=== PATIENT | female | born 1930 | race Caucasian/White ===

== ENCOUNTER → 2016-10-30 | Outpatient (REF) | payer MEDICARE, MEDICAID ==
[~2016-10-30] MED LIST: *BLDWK1; *BLDWK10; *BLDWK2; *CXR; *MAMMOGRAM; *NEBULIZER; /ADVA50050 INH; /GUAIMAX PO; /MELO7TA PO; /WARF25TA; /WARF25TA PO; ACCOLATE; ACET500C; ACET500C PO; ACET500T37 PO; ADV500INH INH; ADVAIR200 INHALATION; ADVAIR500 INHALATION; ALBU/IPRAT INHALATION; ALBU20IN INH; ALBUTERAL INHALER; ALBUTERAL SULFATE NEB; ALBUTEROL INHALATION; ALLE10TA11 PO; ALLOPUR100 PO; AMOXIL500 PO; ANTI25TA; ANTIV 25 PO; ASPI81TA85 PO; ASTE137S; ASTELIN; ASTELIN NASAL; ATARAX25 PO; ATROVENTIN; ATROVENTIN PO; AUG875 PO; AVELOX PO; BABY81CH; BACTRIMDS; BACTRIMDS PO; BENA25CA2 PO; CALCIUM CITRATE PO; CALCTAB37 PO; CEFTIN500 PO; CIPRO500 PO; CITRTAB14 PO; CITRTAB15 PO; CLAR1TAB2 PO; CLAR5CHW; CLARITIN10; CLARITIN10 PO; COLA100C PO; COLA50CA3 PO; DARV100T; DEXA; DICL13PA TD; DOXY75CA3 PO; DOXYCYC100; DOXYCYC100 PO; DRISDOL50 PO; DUONSOL INH; DURATUSS PO; FISH1000 PO; FISHCAP; FLAX SEED; FLAX1000 PO; FLECTOR PATCH TD; FOSAMAX70; FURO40TA2 PO; GLUC250C5 PO; GLUCTAB6; HYDR12.56 PO; HYDR200T3 PO; HYDROXYCHLOROQUINE; HYDROXYCHLOROQUINE PO; IPRA2IN INH; IPRASOL4 NEB; IPRATROPIUM BROMIDE; LEVO50TA2 PO; LEVOTH PO; LORA10TA2 PO; LORATADINE PO; LOVE1INJ2 SC; MAALSUS16 PO; MAMMOGRAM; MECL-68 PO; MECLIZIN PO; MELO7.5S PO; MELO7.5T3 PO; METO10TA2; MOME50SP; MOMETASONE; MUCINEX; MULTCAP PO; MULTLIQ7 PO; NASONEX; NASONEX NASAL; ONDA4TAB6 PO; PARO20TA2 PO; PERC5TAB6 PO; PERC5TAB8; PERI0.126 MT; PLAQ200T PO; POLYOPD OU; PRED10TA PO; PRED20TA; PRIL20CA; PRIL20CA PO; PRIL20CA9 PO; PROAAER INH; PROV2.5T PO; PROVENTILI; PROVENTILI PO; PULMICORT; REGL10TA6 PO; REST0.05 OU; RESTASIS OU; RHINOAEROS NASAL; SENO8.6T2 PO; SEREVENTIN DISCUS; SEREVENTIN PO; SING10TA31; SINGULAI10 PO; SKEL800T5; STOOL SOFTNER; SYNT50TA PO; TEMOVATECR TOPICAL; TIGAN PO; TRAZ50TA4 PO; TUSSIONEX PO; TUSSSUS5; TYL325; TYLE325T5 PO; Tramadol PO; ULTR50TA PO; VENTAER INH; VITA100T20 PO; VITA400C2 PO; VITAMIN D; VITAMIN D PO; VITMTA PO; Vitamin B12 PO; XOPENEX; ZOFR4SOL PO; ZYRTEC10; ZYRTEC10 PO; [UNRECOGNIZED DRUG - CODE] PO; [UNRECOGNIZED DRUG - CODE] PO; [UNRECOGNIZED DRUG - OTHER]; [UNRECOGNIZED DRUG - OTHER]; [UNRECOGNIZED DRUG - OTHER] AU; [UNRECOGNIZED DRUG - OTHER] PO; [UNRECOGNIZED DRUG - OTHER] TOPICAL; [UNRECOGNIZED DRUG - OTHER] TOPICAL; [UNRECOGNIZED DRUG - REMARK] PO; citracal; mobic; vitamin; vitamin b 12; vitamin e
== END ==
PROVIDERS: ATTEND Internal Medicine
DX: E03.9 Hypothyroidism, unspecified (principal)

== ENCOUNTER → 2016-11-06 | Outpatient (REF) | payer MEDICARE, MEDICAID ==
[2016-11-06 12:26] LABS: CREATININE FOR GFR 1.45 MG/DL (0.55-1.02); GLOMERULAR FILTRATION RATE 36.5 (>32); POTASSIUM SERUM 3.8 MEQ/L (3.5-5.1)
== END ==
PROVIDERS: ATTEND Internal Medicine
DX: E87.6 Hypokalemia (principal)

== ENCOUNTER → 2017-01-24 | Outpatient (REF) | payer MEDICARE, MEDICAID ==
[~2017-01-24] MED LIST changes: -COLA100C PO; +COLA100C3 PO
--- NOTE | 2017-01-25 08:41 | REP ---
Clinical: Left hip pain. Technique: Neutral and frog lateral views of the left hip. Findings: Joint space narrowing is appreciated along with osteophyte/spurring along the acetabular rim. Small periarticular calcifications cannot be excluded along with adjacent vascular calcifications. No acute fracture dislocation. 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 No acute fracture or dislocation. Signed by Cristian Sanchez MD 01/24/2017 01:06 P
--- NOTE | 2017-01-25 08:41 | REP ---
Clinical: Left hip pain. Technique: Single AP view of the pelvis. Findings: Prior right hip arthroplasty. Mild joint space narrowing is appreciated. Femoral head is normal in contour. No acute fracture dislocation. Impression: Mild joint space narrowing and minimal age-related changes. Signed by Cristian Sanchez MD 01/24/2017 01:02 P
== END ==
PROVIDERS: ATTEND Internal Medicine
DX: M16.12 Unilateral primary osteoarthritis, left hip (principal); Z96.642 Presence of left artificial hip joint

== ENCOUNTER → 2017-01-24 | Outpatient (CLI) | payer MEDICARE, MEDICAID | LOC: M RAD 12:43 | PROVIDERS: ATTEND Internal Medicine | DX: Z53.8 Procedure and treatment not carried out for other reasons (principal) ==

== ENCOUNTER → 2017-02-12 | Outpatient (REF) | payer MEDICARE, MEDICAID ==
[2017-02-12 11:28] LABS: MEAN CORPUSCULAR HGB CONC 32.3 g/dl (32.0-36.5); MEAN CORPUSCULAR VOLUME 96.1 fl (80.0-96.0)
[2017-02-12 12:04] LABS: ALBUMIN 3.2 GM/DL (3.2-5.2); ALBUMIN/GLOBULIN RATIO 1.14 (1.00-1.93); BILIRUBIN,TOTAL 0.4 MG/DL (0.2-1.0); CALCIUM LEVEL 9.1 MG/DL (8.8-10.2); CREATININE FOR GFR 1.46 MG/DL (0.55-1.02); GLOMERULAR FILTRATION RATE 36.2 (>32); POTASSIUM SERUM 4.2 MEQ/L (3.5-5.1)
== END ==
PROVIDERS: ATTEND Internal Medicine
DX: N18.9 Chronic kidney disease, unspecified (principal)

== ENCOUNTER → 2017-04-30 | Outpatient (REF) | payer MEDICARE, MEDICAID ==
[~2017-04-30] MED LIST changes: +ACET-683 PO; -ACET500T37 PO; -CALCTAB37 PO; +CALCTAB63 PO; -COLA100C3 PO; +COLA100C5 PO; +PERC5TAB12 PO; -PERC5TAB6 PO; -SENO8.6T2 PO; +SENO8.6T5 PO; +TRAZ50TA11 PO; -TRAZ50TA4 PO
[2017-04-30 11:21] LABS: MEAN CORPUSCULAR HEMOGLOBIN 30.7 pg (27.0-33.0); MEAN CORPUSCULAR VOLUME 95.8 fl (80.0-96.0); RED CELL DISTRIBUTION WIDTH 13.8 % (11.5-14.5); WHITE BLOOD COUNT 5.3 K/mm3 (4.0-10.0)
[2017-04-30 11:47] LABS: CALCIUM LEVEL 8.6 MG/DL (8.8-10.2); CREATININE FOR GFR 1.35 MG/DL (0.55-1.02); GLOMERULAR FILTRATION RATE 39.7 (>32); POTASSIUM SERUM 3.8 MEQ/L (3.5-5.1)
== END ==
PROVIDERS: ATTEND Internal Medicine
DX: I50.9 Heart failure, unspecified (principal); J44.9 Chronic obstructive pulmonary disease, unspecified

== ENCOUNTER → 2017-08-06 | Outpatient (REF) | payer MEDICARE, MEDICAID ==
[2017-08-06 12:29] LABS: BASO # 0.1 10^3/uL (0.0-0.2); BASO % 0.4 % (0.0-1.0); EOS % 0.1 % (0.0-3.0); IMMATURE GRANULOCYTE % 0.6 % (0-0); LYMPH # 1.4 10^3/uL (1.5-4.5); LYMPH % 8.9 % (24.0-44.0); MEAN CORPUSCULAR HEMOGLOBIN 29.5 pg (27.0-33.0); MEAN CORPUSCULAR VOLUME 89.4 fl (80.0-96.0); MONO # 1.2 10^3/uL (0.0-0.8); MONO % 7.4 % (0.0-5.0); NEUTROPHILS # 13.2 10^3/uL (1.8-7.7); NEUTROPHILS % 82.6 % (36.0-66.0); PLATELET COUNT, AUTOMATED 174 10^3/uL (150-450); RED CELL DISTRIBUTION WIDTH 15.2 % (11.5-14.5)
--- NOTE | 2017-08-06 12:34 | REP ---
Clinical: Cough. Technique: AP view of the chest. Comparison: 12/27/2015. Findings: Mediastinum and cardiac silhouette are stable. Diffuse chronic interstitial changes are appreciated. Superimposed left lower lobe atelectasis cannot be excluded. No obvious effusion. No pneumothorax. Skeletal structures intact. Impression: Cannot exclude trace left basilar atelectasis. Signed by Cristian Sanchez MD 08/06/2017 12:25 P
[2017-08-06 12:52] LABS: ALBUMIN/GLOBULIN RATIO 0.91 (1.00-1.93); BILIRUBIN,TOTAL 0.7 MG/DL (0.2-1.0); CALCIUM LEVEL 9.1 MG/DL (8.8-10.2); CREATININE FOR GFR 1.53 MG/DL (0.55-1.02); GLOMERULAR FILTRATION RATE 34.3 (>32); POTASSIUM SERUM 3.7 MEQ/L (3.5-5.1); TOTAL PROTEIN 6.3 GM/DL (6.4-8.2)
== END ==
PROVIDERS: ATTEND Internal Medicine
DX: R05 Cough (principal); R09.81 Nasal congestion

== ENCOUNTER → 2017-08-11 | Outpatient (REF) | payer MEDICARE, MEDICAID ==
[2017-08-11 09:42] LABS: BASO % 0.1 % (0.0-1.0); IMMATURE GRANULOCYTE % 0.4 % (0-0); LYMPH # 0.8 10^3/uL (1.5-4.5); MEAN CORPUSCULAR HEMOGLOBIN 29.2 pg (27.0-33.0); MEAN CORPUSCULAR HGB CONC 32.4 g/dl (32.0-36.5); MEAN CORPUSCULAR VOLUME 90.2 fl (80.0-96.0); MONO # 0.4 10^3/uL (0.0-0.8); MONO % 5.4 % (0.0-5.0); NEUTROPHILS # 5.7 10^3/uL (1.8-7.7); NEUTROPHILS % 83.1 % (36.0-66.0); PLATELET COUNT, AUTOMATED 233 10^3/uL (150-450); RED CELL DISTRIBUTION WIDTH 14.4 % (11.5-14.5); WHITE BLOOD COUNT 6.9 10^3/uL (4.0-10.0)
== END ==
PROVIDERS: ATTEND Internal Medicine
DX: R50.9 Fever, unspecified (principal)

== ENCOUNTER → 2017-08-16 | Outpatient (REF) | payer MEDICARE, MEDICAID ==
[2017-08-16 10:56] LABS: MEAN CORPUSCULAR HEMOGLOBIN 29.6 pg (27.0-33.0); MEAN CORPUSCULAR HGB CONC 32.1 g/dl (32.0-36.5); MEAN CORPUSCULAR VOLUME 92.3 fl (80.0-96.0); PLATELET COUNT, AUTOMATED 222 10^3/uL (150-450); RED CELL DISTRIBUTION WIDTH 14.8 % (11.5-14.5); WHITE BLOOD COUNT 10.1 10^3/uL (4.0-10.0)
[2017-08-16 11:22] LABS: ALBUMIN 3.3 GM/DL (3.2-5.2); ALBUMIN/GLOBULIN RATIO 1.03 (1.00-1.93); BILIRUBIN,TOTAL 0.3 MG/DL (0.2-1.0); CALCIUM LEVEL 8.6 MG/DL (8.8-10.2); CREATININE FOR GFR 1.63 MG/DL (0.55-1.02); GLOMERULAR FILTRATION RATE 31.8 (>32); POTASSIUM SERUM 3.6 MEQ/L (3.5-5.1); TOTAL PROTEIN 6.5 GM/DL (6.4-8.2)
== END ==
PROVIDERS: ATTEND Internal Medicine
DX: R63.4 Abnormal weight loss (principal); R53.83 Other fatigue

== ENCOUNTER → 2017-09-04 | Outpatient (REF) | payer MEDICARE, MEDICAID ==
[2017-09-04 10:34] LABS: MEAN CORPUSCULAR HEMOGLOBIN 29.7 pg (27.0-33.0); MEAN CORPUSCULAR HGB CONC 32.6 g/dl (32.0-36.5); MEAN CORPUSCULAR VOLUME 90.9 fl (80.0-96.0); PLATELET COUNT, AUTOMATED 180 10^3/uL (150-450); RED CELL DISTRIBUTION WIDTH 14.9 % (11.5-14.5)
[2017-09-04 11:17] LABS: ALBUMIN 2.9 GM/DL (3.2-5.2); ALBUMIN/GLOBULIN RATIO 0.94 (1.00-1.93); ALKALINE PHOSPHATASE 115 U/L (45-117); ALT/SGPT 25 U/L (12-78); ANION GAP 5 MEQ/L (8-16); AST/SGOT 38 U/L (7-37); BILIRUBIN,TOTAL 0.4 MG/DL (0.2-1.0); BLOOD UREA NITROGEN 26 MG/DL (7-18); CALCIUM LEVEL 8.9 MG/DL (8.8-10.2); CARBON DIOXIDE LEVEL 34 MEQ/L (21-32); CHLORIDE LEVEL 102 MEQ/L (98-107); CREATININE FOR GFR 1.55 MG/DL (0.55-1.02); GLOMERULAR FILTRATION RATE 33.7 (>32); GLUCOSE, FASTING 72 MG/DL (83-110); POTASSIUM SERUM 3.8 MEQ/L (3.5-5.1); SODIUM LEVEL 141 MEQ/L (136-145)
== END ==
DX: E03.9 Hypothyroidism, unspecified (principal)
CPT/HCPCS: 80053

== ENCOUNTER → 2017-09-12 | Outpatient (REF) | payer MEDICARE, MEDICAID ==
[2017-09-12 17:40] LABS: ANION GAP 8 MEQ/L (8-16); BLOOD UREA NITROGEN 28 MG/DL (7-18); CARBON DIOXIDE LEVEL 28 MEQ/L (21-32); CHLORIDE LEVEL 107 MEQ/L (98-107); CREATININE FOR GFR 1.61 MG/DL (0.55-1.02); GLOMERULAR FILTRATION RATE 32.3 (>32); GLUCOSE, FASTING 128 MG/DL (83-110); POTASSIUM SERUM 4.5 MEQ/L (3.5-5.1); SODIUM LEVEL 143 MEQ/L (136-145)
[2017-09-12 18:37] LABS: HEMATOCRIT 40.6 % (36.0-47.0); MEAN CORPUSCULAR HEMOGLOBIN 28.8 pg (27.0-33.0); PLATELET COUNT, AUTOMATED 269 10^3/uL (150-450); RED BLOOD COUNT 4.51 10^6/uL (4.00-5.40); WHITE BLOOD COUNT 5.8 10^3/uL (4.0-10.0)
== END ==
DX: R53.83 Other fatigue (principal); R05 Cough
CPT/HCPCS: 80048

== ENCOUNTER → 2017-09-19 | Outpatient (REF) | payer MEDICARE, MEDICAID ==
[2017-09-19 12:35] LABS: BASO # 0.1 10^3/uL (0.0-0.2); BASO % 0.8 % (0.0-1.0); HEMATOCRIT 41.1 % (36.0-47.0); HEMOGLOBIN 13.3 g/dl (12.0-16.0); IMMATURE GRANULOCYTE # 0.1 10^3/uL (0-0); IMMATURE GRANULOCYTE % 1.6 % (0-0); LYMPH # 1.1 10^3/uL (1.5-4.5); LYMPH % 14.4 % (24.0-44.0); MEAN CORPUSCULAR HEMOGLOBIN 29.4 pg (27.0-33.0); MEAN CORPUSCULAR HGB CONC 32.4 g/dl (32.0-36.5); MEAN CORPUSCULAR VOLUME 90.9 fl (80.0-96.0); MONO # 0.9 10^3/uL (0.0-0.8); MONO % 11.2 % (0.0-5.0); NEUTROPHILS # 5.5 10^3/uL (1.8-7.7); PLATELET COUNT, AUTOMATED 286 10^3/uL (150-450); RED BLOOD COUNT 4.52 10^6/uL (4.00-5.40); RED CELL DISTRIBUTION WIDTH 15.1 % (11.5-14.5); WHITE BLOOD COUNT 7.6 10^3/uL (4.0-10.0)
[2017-09-19 12:43] LABS: APPEARANCE, URINE HAZY (CLEAR); BACTERIA, URINE AUTO NEGATIVE (NEGATIVE); BILIRUBIN, URINE AUTO NEGATIVE (NEGATIVE); BLOOD, URINE BLOOD NEGATIVE (NEGATIVE); COLOR, URINE YELLOW (YELLOW); GLUCOSE, URINE (UA) AUTO NEGATIVE (NEGATIVE); KETONE, URINE AUTO NEGATIVE (NEGATIVE); LEUKOCYTE ESTERASE, URINE AUTO TRACE (NEGATIVE); MUCUS, URINE SMALL (NEGATIVE); NITRITE, URINE AUTO NEGATIVE (NEGATIVE); PROTEIN, URINE AUTO NEGATIVE (NEGATIVE); RBC, URINE AUTO 2 /HPF (0-3); SPECIFIC GRAVITY URINE AUTO 1.013 (1.002-1.035); SQUAMOUS EPITHELIAL CELL UR AU 0 /HPF (0-6); UROBILINOGEN, URINE AUTO 0.2 mg/dL (0.0-2.0); WBC, URINE AUTO 9 /HPF (0-3)
[2017-09-19 13:05] LABS: ERYTHROCYTE SEDIMENTATION RATE 56 mm/hr (0-42)
[2017-09-19 14:23] LABS: ALBUMIN 2.8 GM/DL (3.2-5.2); ALBUMIN/GLOBULIN RATIO 0.82 (1.00-1.93); ALKALINE PHOSPHATASE 99 U/L (45-117); ALT/SGPT 25 U/L (12-78); ANION GAP 11 MEQ/L (8-16); AST/SGOT 41 U/L (7-37); BILIRUBIN,TOTAL 0.4 MG/DL (0.2-1.0); BLOOD UREA NITROGEN 26 MG/DL (7-18); C REACTIVE PROTEIN QUANTITATIV 3.82 MG/DL (0.00-0.30); CALCIUM LEVEL 9.1 MG/DL (8.8-10.2); CARBON DIOXIDE LEVEL 29 MEQ/L (21-32); CHLORIDE LEVEL 100 MEQ/L (98-107); CREATININE FOR GFR 1.44 MG/DL (0.55-1.02); GLOMERULAR FILTRATION RATE 36.7 (>32); GLUCOSE, FASTING 81 MG/DL (83-110); POTASSIUM SERUM 3.2 MEQ/L (3.5-5.1); SODIUM LEVEL 140 MEQ/L (136-145); TOTAL PROTEIN 6.2 GM/DL (6.4-8.2)
== END ==
DX: R63.4 Abnormal weight loss (principal); E03.9 Hypothyroidism, unspecified; J44.9 Chronic obstructive pulmonary disease, unspecified; I50.9 Heart failure, unspecified; Z79.899 Other long term (current) drug therapy
CPT/HCPCS: 84443

== ENCOUNTER → 2017-09-20 | Outpatient (REF) | payer MEDICARE, MEDICAID | DX: E87.5 Hyperkalemia (principal) | CPT/HCPCS: 84132 ==